=== PATIENT | female | born 1955 | race Caucasian/White ===

== ENCOUNTER → 2017-03-03 | Outpatient (CLI) | payer OTHER ==
--- NOTE | 2017-03-03 17:05 | KCIC ---
Bilateral digital screening mammograms: Reason for examination: Routine screening. Comparison is made to previous studies dated 10/08/2015 and 10/03/2014. The skin and nipples show no abnormalities. No abnormal lymph nodes are seen. The breast parenchyma is predominantly fatty. (Breast density: Category A.) There continues to be a small nodule consistent with an intramammary lymph node at the 2:00 C position of the left breast. There are no new dominant masses, suspicious calcifications or architectural distortions. Impression: No evidence of malignancy. Recommend routine screening. BI-RADS Category 2: Benign. "Our facility is accredited by the [employer] Mammography [employer]." This patient's information has been entered into a reminder system for the patient to be notified with the results of her examination and a target date for the next mammogram. Electronically signed by: Rebecca Kim MD (03/03/2017 5:02 PM) [facility]
== END | disposition home or self-care (01) ==
LOC: KCIC MAMMO 13:45
PROVIDERS: ATTEND Obstetrics & Gynecology
DX: Z12.31 Encounter for screening mammogram for malignant neoplasm of breast (principal)
CPT/HCPCS: G0202; 77067

== ENCOUNTER → 2018-03-08 | Outpatient (CLI) | payer OTHER ==
--- NOTE | 2018-03-08 13:02 | KCIC ---
Bilateral digital screening mammograms: Reason for examination: Routine screening. Comparison is made to previous studies dated 03/03/2017 and 10/08/2015. Interpretation is made with the benefit of CAD. The skin and nipples show no abnormalities. No abnormal lymph nodes are seen. The breast parenchyma is predominantly fatty. (Breast density: Category A.) There continues to be a small nodule consistent with an intramammary lymph node at the 2:00 C position of the left breast. There also continues to be a small parenchymal density inferior to the nipple at approximately the 6:00 A position of the right breast which is unchanged. There are no new dominant masses, suspicious calcifications or architectural distortions. Impression: No evidence of malignancy. Recommend routine screening. BI-RADS Category 2: Benign. "Our facility is accredited by the [employer]ammography [employer]." This patient's information has been entered into a reminder system for the patient to be notified with the results of her examination and a target date for the next mammogram. Electronically signed by: Rebecca Kim MD (03/08/2018 12:58 PM) [id number]
== END | disposition home or self-care (01) ==
LOC: KCIC MAMMO 11:38
PROVIDERS: ATTEND Obstetrics & Gynecology
DX: Z12.31 Encounter for screening mammogram for malignant neoplasm of breast (principal)
CPT/HCPCS: 77067

== ENCOUNTER → 2019-03-14 | Outpatient (CLI) | payer OTHER ==
--- NOTE | 2019-03-14 16:08 | KCIC ---
Bilateral digital screening mammograms: Reason for examination: Routine screening. Comparison is made to previous studies dated 03/08/2018 and 03/03/2017. Interpretation was made with the benefit of CAD. The skin and nipples show no abnormalities. No abnormal axillary lymph nodes are seen. The breast parenchyma shows scattered fibroglandular density. (Breast density: Category B.) There continues to be a nodule consistent with an intramammary lymph node in the 2:00 C position of the left breast. There appears to be some new nodular parenchymal density in the anterior medial left breast probably at the 11:00 position. Recommend further evaluation with ultrasound. There are no other nodules, suspicious calcifications or architectural distortions. Impression: New nodularity anterior medially in the left breast seen best on CC view. Recommend further evaluation with ultrasound. BI-RADS Category 0: Incomplete. Needs additional imaging evaluation. "Our facility is accredited by the [employer] Mammography [employer]." This patient's information has been entered into a reminder system for the patient to be notified with the results of her examination and a target date for the next mammogram. Electronically signed by: Rebecca Kim MD (03/14/2019 4:05 PM) [facility]
== END | disposition home or self-care (01) ==
LOC: KCIC MAMMO 13:56
PROVIDERS: ATTEND Obstetrics & Gynecology
DX: Z12.31 Encounter for screening mammogram for malignant neoplasm of breast (principal); N64.89 Other specified disorders of breast
CPT/HCPCS: 77067

== ENCOUNTER → 2019-03-29 | Outpatient (CLI) | payer OTHER ==
--- NOTE | 2019-03-29 15:45 | KCIC ---
Left breast ultrasound: Reason for examination: Follow-up nodule seen on mammographic exam. Comparison is made to mammographic exam dated 03/14/2019. Left whole breast ultrasound including evaluation of all 4 quadrants and the retroareolar and axillary regions of the left breast was performed. In the 2:00 position 11 cm from the nipple, there is a small 6.8 mm nodule consistent with an intramammary lymph node. In the 11:00 position 2 cm from the nipple there is some focal ductal ectasia. In the retroareolar 11:00 position, there is a 7.5 mm hypoechoic fibrocystic type lesion. In the 11:00 position 4 cm from the nipple, there is a 5.7 mm fibrocystic type lesion. No suspicious nodules are seen. No abnormal appearing lymph nodes are seen in the left axilla. IMPRESSION: Small fibrocystic type lesions at the 11:00 position. No suspicious abnormalities are seen. Recommend 6 month follow-up with ultrasound. BI-RADS Category 3: Probably Benign. "Our facility is accredited by the [employer] Mammography [employer]." This patient's information has been entered into a reminder system for the patient to be notified with the results of her examination and a target date for the next mammogram. Electronically signed by: Rebecca Kim MD (03/29/2019 3:42 PM) [facility]
== END | disposition home or self-care (01) ==
LOC: KCIC US 12:51
PROVIDERS: ATTEND Obstetrics & Gynecology
DX: N63.22 Unspecified lump in the left breast, upper inner quadrant (principal); N60.42 Mammary duct ectasia of left breast
CPT/HCPCS: 76641

== ENCOUNTER → 2020-05-10 | Outpatient (CLI) | payer MEDICARE ==
--- NOTE | 2020-05-10 10:57 | KCIC ---
EXAM: DUAL ENERGY X-RAY ABSORPTIOMETRY (DEXA). HISTORY: Postmenopausal screening. FINDINGS: The lowest measured T-score is 1.0 in the left total femur, based on a bone mineral density of 1.063 g/cm^2. Refer to the worksheets for full detail. No comparison examinations are available. IMPRESSION: Normal. Bone mineral density yields a T-score of -1.0 or greater. Fracture risk is low. FRAX was not calculated. METHODOLOGY: Dual energy x-ray absorptiometry was performed to measure bone mineral density. The following analysis is based on the 2019 Official Positions of the International Society for Clinical Densitometry: Measurements of the hips and the average of L1-L4 are preferred. When the spine and/or hip cannot be feasibly measured or interpreted, or in the setting of hyperparathyroidism, distal radial bone mineral density may be measured. The lumbar spine T-score is based on the average bone mineral density of L1-L4. In the setting of artifact or anatomic abnormality, some lumbar levels may be excluded, and the remaining levels used for calculation. A single lumbar level is not used for diagnosis, and if only a single level is available for assessment, another anatomic site will be used to assign a diagnosis. The hip T-score is based on the bone mineral density measurement of the femoral neck or total proximal femur of either side, whichever is lowest. Bilateral mean values are not used for diagnosis. The forearm T-score is derived from 33% of the distal radius of the nondominant forearm. For postmenopausal and perimenopausal women, and men age 50 or older, of all ethnic groups, T-scores are calculated through comparison of the current measurement with the NHANES III database standard for females aged 20-29 years. The lowest T-score of the evaluated anatomic sites is used to assign a diagnosis based on the World Health Organization densitometric classification. In premenopausal females and males younger than age 50, a Z-score is calculated based on population specific reference data for patient sex and self-reported ethnicity. Electronically signed by: Malorie Engel MD (05/10/2020 10:53 AM) [facility]
--- NOTE | 2020-05-10 12:33 | KCIC ---
EXAM: CT Lung Cancer Screening Chest without IV contrast INDICATION: Lung cancer screening. Smoker for 45 years, 1-2 packs a day greater than 30 year pack history. TECHNIQUE: Multi-detector row low dose CT images were acquired from the thoracic inlet through the upper abdomen without the use of IV contrast. Scanning parameters were adjusted for evaluation of lung parenchyma for developing lung carcinoma with limited patient exposure. Sagittal and coronal images were acquired from the transaxial data. All CT scans performed at this facility utilize dose optimization techniques as appropriate to the exam, including the following: Automated exposure control and adjustment of the mA and/or KV according to patient size (this includes techniques or standardized protocols for targeted exams where dose is indication/reason for exam). COMPARISON: None FINDINGS: The absence of IV contrast limits evaluation of soft tissue pathology. CARDIOVASCULAR: Scattered atherosclerotic calcifications in the thoracic aorta, coronary arteries and supraaortic great vessels. MEDIASTINUM & TRAICE: Calcified mediastinal and right hilar lymph nodes are present. LUNGS: No pulmonary infiltrate, nodule, or other focal abnormality. PLEURAL SPACE: No pleural effusions. No pneumothorax. OSSEOUS & SOFT TISSUES: Unremarkable. ABDOMEN: The visualized portions of the upper abdomen are normal. Lung-RADS ASSESSMENT: LUNG-RADS CATEGORY 1: Negative/No nodules and definitely benign nodules. -- Continue annual screening with LDCT in 12 months. E2: Soft tissue structures and skeletal structures other than the lungs contain benign findings that do not require additional follow up IMPRESSION: Normal CT lung cancer screening. Electronically signed by: Rayna Tellez MD (05/10/2020 12:30 PM) [id number]
== END ==
LOC: KCIC CT 09:16
PROVIDERS: ATTEND Internal Medicine
DX: Z12.2 Encounter for screening for malignant neoplasm of respiratory organs (principal); N95.9 Unspecified menopausal and perimenopausal disorder; I70.0 Atherosclerosis of aorta; F17.210 Nicotine dependence, cigarettes, uncomplicated
CPT/HCPCS: 77080; G0297

== ENCOUNTER → 2020-07-17 | Outpatient (CLI) | payer MEDICARE ==
--- NOTE | 2020-07-18 05:36 | KCIC ---
EXAMINATION: Magnetic resonance imaging (MRI) of the lumbar spine without contrast 07/17/2020 2:55 PM HISTORY: Low back pain. Radiculopathy and bilateral hip pain. TECHNIQUE: Multiplanar multi-weighted MRI of the lumbar spine was performed without intravenous contr ast using the standard lumbar spine protocol. Contrast information: None administered. COMPARISON: None available. FINDINGS: The alignment of the lumbar spine is normal. Vertebral bodies demonstrate normal signal intensity on all sequences. There are no compression fractures. The conus medullaris terminates at the level of L1. The distal spinal cord signal intensity is normal. Intervertebral disks have normal height and signal intensity. There are no annular fissures identified. Limited views of the abdomen and pelvis show no soft tissue abnormality. The aorta is normal. L1-L2: Mild disc bulge with central disc extrusion. There is mild facet arthropathy. There is moderat e neuroforaminal stenosis. There is mild spinal canal stenosis, exacerbated by epidural lipomatosis. L2-L3: Mild disc bulge. There is no facet arthropathy. There is no neuroforaminal stenosis. There is no spinal canal stenosis. L3-L4: There is mild disc bulge. There is moderate facet arthropathy ligamentum flavum infolding. The re is mild bilateral neuroforaminal stenosis, left greater than right. No spinal canal stenosis. L4-L5: There is a moderate circumferential disc bulge. There is severe facet arthropathy ligamentum f lavum infolding. There is focal T2 and T1 signal hypointensity along the posterior lateral right thec al sac which may represent an area of ligamentum flavum infolding versus calcified synovial cyst or l ess likely an extradural lesion. Findings result in right lateral recess stenosis and moderate bilate ral neuroforaminal stenosis. There is mild to moderate spinal canal stenosis. L5-S1: There is a disc bulge with central disc protrusion. Moderate right and mild left facet arthrop athy. Moderate right neuroforaminal stenosis. No spinal canal stenosis. IMPRESSION: Moderate degenerative changes of the lumbar spine, most prominent at L4-L5 with a moderate circumfere ntial disc bulge with severe facet arthropathy and ligamentum flavum infolding. There is focal T2 and T1 signal hypointensity along the posterior lateral right thecal sac which may represent an area of ligamentum flavum infolding versus calcified synovial cyst or less likely an extradural lesion. Electronically signed by: Tatianna Michael MD (07/18/2020 5:34 AM) [facility]
--- NOTE | 2020-07-18 07:44 | KCIC ---
MRI pelvis without contrast HISTORY: Low back pain. Bilateral hip pain. Radiculopathy. Right buttock pain. FINDINGS: Pelvic organs demonstrate within the anterior upper pelvis a unilocular cystic mass maximum diameter 9.2 x 8.2 cm transaxial by 8.4 cm craniocaudal, the anterior wall demonstrate some thin int ernal septations, no discrete wall thickening or solid nodules of this cyst evident presumably replac es the right ovary. Separately the left ovary is essentially replaced by a smaller oval 1.5 x 1.0 x 1 .0 cm cyst. Uterus and endometrial canal normal. There is prominence of the endocervical mucosa with a diameter o f 1 cm although there is no discrete mass lesion or invasion into the cervical stroma evident. Vagina , bladder and rectum are unremarkable. Sigmoid diverticulosis noted. Lumbar disc bulges and facet spurring with spinal canal and neural foraminal stenoses as described in the MRI lumbar spine report. Both hips demonstrate mild imaging changes of osteoarthritis with mild joint space narrowing and mild bone spurring at the acetabulum. No bone edema, fracture or osteonecrosis of the hips. Pubic symphysis demonstrates osteoarthritis with joint line bony sclerosis and mild bone spurring, wi th bony edema of the left pubic bone. The remainder of the pelvis is normal without bony edema, fracture or arthritic change evident. IMPRESSION: 1. 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 2. Mild imaging changes of bilateral hip osteoarthritis. 3. Right ovarian 9 cm unilocular cyst with some thin internal septations along the anterior wall. For incidental cysts of this size in a postmenopausal female correlation with serum CA-125, and further assessment with postcontrast with pelvic MR imaging would be of benefit to exclude any abnormal thick ened or irregular enhancing septations or enhancing solid components. 4. Prominence of the endocervical mucosa of uncertain significance. Correlation with Pap smear may be of benefit. Electronically signed by: Brian Guidry MD (07/18/2020 7:42 AM) [id number]
== END ==
LOC: KCIC MRI 14:33
PROVIDERS: ATTEND Internal Medicine
DX: M16.0 Bilateral primary osteoarthritis of hip (principal); M25.552 Pain in left hip; M25.551 Pain in right hip; M47.26 Other spondylosis with radiculopathy, lumbar region; M48.061 Spinal stenosis, lumbar region without neurogenic claudication; N95.9 Unspecified menopausal and perimenopausal disorder; N83.291 Other ovarian cyst, right side
CPT/HCPCS: 72148; 72195

== ENCOUNTER → 2020-07-23 | Outpatient (CLI) | payer MEDICARE ==
[~2020-07-23] MED LIST: ACET-1871 PO; ATOR10TA60 PO; BIOT5000 PO; CALC-71 PO; DULO60CA6 PO; IOHEXOL 180 MG/ML 10 ML VIAL. ONE; LISI1TAB37 PO; MULT-445 PO; NABU750T7 PO; OXYB5TAB10 PO; TRAM50TA PO; VARE1TAB21 PO; VITA1TAB19 PO; methylPREDNISolone ACETATE 40 MG/ML VIAL. ONE; methylPREDNISolone ACETATE 80 MG/ML VIAL. ONE
--- NOTE | 2020-07-23 15:46 | PDOC1 ---
INITIAL PAIN CONSULT DATE OF SERVICE: DOS: DATE: 07/23/20 TIME: 15:39 CHIEF COMPLAINT: Chief Complaint: Low back and right greater than left lower extremity pain HISTORY OF PRESENT ILLNESS: 65-year-old female presents with history of pain in the low back and right greater than left lower extremity for about 5+ years. Patient reports not the result of any specific injury or accident that she is aware of but is getting worse with time. Patient reports is worse in the low back rating the posterior gluteus posterior lateral thigh lateral anterior thigh anterior medial thigh on the right but occasionally on the left as well. Patient reports the pain is constant and sharp stabbing and throbbing in the low back with radiating pain that is cold sensation in the right leg as well as a burning sensation in the back and the right posterior hip. Patient has been doing some stretching and strengthening on her own has had a trigger point injection from her primary physician which did help for about a week on the left side. Patient reports that she had some chiropractic treatment in the past as well but is been several years. Patient rates her disability rating 0-10 10 being the worst as a 6-10 on family home responsibilities, 6 with recreation, 5 with social activity occupation, 10 with sexual behavior, 7 with self-care and 5 life support activities. Patient ports it wakes her from sleep about 2-3 times at night and does not affect her bowel bladder control but does affect ability to walk she is unable to complete a shopping trip to the grocery store without having to take a break and sit down. Patient reports also worse with standing stationary when she is for instance preparing food or at her sink in the kitchen doing dishes. Patient did have a MRI scan of lumbar spine showing disc bulges from L2-3 through 4 L4-5 and L5-S1 with L4-5 showing moderate circumferential disc bulge and right lateral recess stenosis and moderate bilateral neuroforaminal stenosis with mild to moderate spinal canal stenosis. Patient reports no loss of motor function but significant fatigability especially the right leg with walking and standing. She reports no bowel or bladder incontinence PAST MEDICAL HISTORY: PMH: Hypertension, obesity, arthritis, shortness of breath, incontinence, depression and anxiety. PREVIOUS SURGERIES: Past Surgical Hx: Carpal tunnel repair on the right, cholecystectomy, tonsillectomy, x1. CURRENT MEDICATIONS: Current Meds: See chart ALLERGIES; Allergies: Coded Allergies: rosuvastatin (Verified Allergy, Unknown, 07/23/20) FAMILY HISTORY: Family Hx: Diabetes SOCIAL HISTORY: Social Hx: Patient drinks alcohol once or twice a month just quit smoking previously less than a pack a day for many years does not use any illegal illicit or recreational drugs is lives with her spouse lives locally in [facility] REVIEW OF SYSTEMS: ROS: Positive for those items mentioned in history of present illness, all systems are reviewed, otherwise negative ,and are complete full and well-documented on patient's chart. PHYSICAL EXAM: VS: Blood pressure is 150/69 pulse 81 respirations 16 temperature 98.5 F height is 61 inches weight is 250 pounds PE: PHYSICAL EXAMINATION: GENERAL: The patient is awake, alert, oriented, appropriate, very pleasant demeanor HEENT: Shows normocephalic, atraumatic. Extraocular movements are intact and symmetrical. Oral cavity: Mucous membranes moist and pink. Dentition is intact. NECK: Shows anterior throat supple without palpable lymphadenopathy noted. Swallow reflex symmetrical. CHEST: Shows normal on inspection. Breath sounds are clear bilaterally, distant but no rales rhonchi wheezes auscultated. HEART: Shows S1, S2 clear. No murmurs auscultated. ABDOMEN: Soft, nontender, nondistended, obese. No palpable organomegaly is noted. No rebound or guarding demonstrated. BACK: Shows spine grossly in the midline. Normal-appearing cervical lordotic curvature. There is slightly increased thoracic kyphosis, some minor flattening of the lumbar lordotic curvature. Lumbar paraspinous muscles show symmetrical on inspection, on palpation shows some moderate tenderness diffusely throughout the upper, middle and lower distribution of the paraspinous muscles bilaterally and also into the lower thoracic paraspinous musculature, firm and tender, but without specific trigger points, without radiation of pain. The patient has good rotational motion of the lumbar spine, both laterally as well as extension and flexion without significant difficulty. No tenderness over the spinous processes, sacrum or sacroiliac regions. EXTREMITIES: Lower extremities show deep tendon reflexes 1+ in the patellar and tendo calcaneus tendons. Motor exam is 4 on a scale of 5 with right dorsiflexion, extension, quadriceps and hamstring flexion and 5/5 on the left. Peripheral pulses are 1+ posterior tibial. No peripheral edema is noted bilaterally. Lower extremities are warm and dry to touch, equal in color and appearance. Straight leg raise noted to be negative bilaterally at past 45 degrees. SKIN: Shows warm and dry, good turgor. No edema. No sores, rashes or bruising throughout. IMPRESSION: Impression: 65-year-old female with long history low back and right greater than left lower extremity pain MRI scan as noted Arthritis Obesity Hypertension Plan: Options were discussed with the patient including conservative medical management physical therapies and interventional techniques. Patient would like to pursue interventional techniques. We discussed a lumbar epidural steroid i njection using description as well as anatomical models to describe the procedure. Risks were discussed including but not limited to: Bleeding, infection, possibility of epidural hematoma and subsequent neurological compromise, dural puncture, headaches, spinal cord and/or nerve damage, side effects of steroid medication, and poor results regarding pain control. Patient understands and wished to proceed. Patient will return to clinic in approximate 2 weeks for follow-up, was counseled as to return appointment activity level and side effects to be aware of. Procedure is lumbar epidural steroid injection under local anesthetic using sterile prep and drape at the L4-5 level using C-arm fluoroscopic guidance in both AP and lateral views medications injected is 120 mg Depo-Medrol + 10 mL preservative-free normal saline and 2 mL contrast- condition at discharge is stable patient tolerated procedure well had no complications. VIJAY BROOKS MD Jul 23, 2020 15:46
== END | disposition home or self-care (01) ==
LOC: PNCL 14:03
PROVIDERS: ATTEND Anesthesiology
DX: M54.5 Low back pain (principal); M79.605 Pain in left leg; M79.604 Pain in right leg; I10 Essential (primary) hypertension; E66.9 Obesity, unspecified; M19.90 Unspecified osteoarthritis, unspecified site; F41.9 Anxiety disorder, unspecified; F32.9 Major depressive disorder, single episode, unspecified; Z83.3 Family history of diabetes mellitus; Z90.49 Acquired absence of other specified parts of digestive tract; Z98.890 Other specified postprocedural states; Z79.899 Other long term (current) drug therapy; Z88.8 Allergy status to other drugs, medicaments and biological substances
CPT/HCPCS: 62323; J1030; J1040; Q9965

== ENCOUNTER → 2020-08-03 | Outpatient (CLI) | payer MEDICARE ==
[~2020-08-03] MED LIST changes: +GADOTERATE 7.5 MMOL/15ML VIAL. IVP ONE; -IOHEXOL 180 MG/ML 10 ML VIAL. ONE; +NABU750T11 PO; -NABU750T7 PO; -methylPREDNISolone ACETATE 40 MG/ML VIAL. ONE; -methylPREDNISolone ACETATE 80 MG/ML VIAL. ONE
--- NOTE | 2020-08-03 22:42 | KCIC ---
MRI pelvis without and with contrast Contrast: 22 mL Clariscan gadolinium intravenous contrast. HISTORY: Ovarian mass. COMPARISON: MRI pelvis July 17, 2020. FINDINGS: There is a left ovarian 1.5 cm cyst essentially replacing the left ovary, abutting the marifer cent sigmoid colon, stable. No contrast enhancement of this lesion or restricted diffusion evident. At the right adnexa the upper pelvis replacing the right ovary is a large cystic lesion with the gona trevon vessels extending along the upper and lateral wall of the lesion, which measures 9 cm maximum sandeep meter and is stable in size. No diffusion-weighted hyperintensity or restricted diffusion of the cyst ic lesion. There are some thin septations along the upper wall of the cysts measuring 1 to 2 mm in th ickness. The septations demonstrate no contrast enhancement. There are no thickened or irregular sept ations or solid nodules of this mass there is no contrast enhancement of this mass. These combined im aging features favor a benign cystic lesion. Mild thickening of the endocervical mucosa again demonstrated of uncertain significance. Uterus, blad freeman, rectum unremarkable. No pelvic fluid or adenopathy. IMPRESSION: 1. 9 cm unilocular cystic lesion replacing the right ovary. There are thin internal septations along its upper wall without contrast enhancement. There are no suspicious features of this cyst including no thickened or irregular septations, solid enhancing nodules or thickened enhancing wall. This favor s a benign cyst. Based on the size of the cyst in a postmenopausal female pelvic ultrasound follow-up in 6-12 months is advised to document stability in size over time, to exclude a slow-growing lesion of low malignant potential. 2. Other incidental findings again demonstrated as described above. Electronically signed by: Brian Guidry MD (08/03/2020 10:40 PM) [facility]
== END ==
LOC: KCIC MRI 13:44
PROVIDERS: ATTEND Internal Medicine
DX: N83.209 Unspecified ovarian cyst, unspecified side (principal)
CPT/HCPCS: 72197; 82565; A9575

== ENCOUNTER → 2020-08-13 | Outpatient (CLI) | payer MEDICARE ==
[~2020-08-13] MED LIST changes: -GADOTERATE 7.5 MMOL/15ML VIAL. IVP ONE; +IOHEXOL 180 MG/ML 10 ML VIAL. ONE; -NABU750T11 PO; +NABU750T7 PO; +methylPREDNISolone ACETATE 40 MG/ML VIAL. ONE; +methylPREDNISolone ACETATE 80 MG/ML VIAL. ONE
--- NOTE | 2020-08-13 14:46 | PDOC ---
Progress Note - Pain Clinic Date of Service: DOS: DATE: 08/13/20 TIME: 14:42 Diagnosis: Dx: Lumbar radiculopathy with lumbar degenerative disc disease lumbar spinal stenosis History or Present Illness: HPI: 65-year-old female returns follow-up status post lumbar epidural steroid injection x1. Patient reports about 40% improvement overall in the low back and right lower extremity pain. Patient reports still continued pain across the low back bilaterally more on the right than the left but present bilaterally radiating the right posterior gluteus posterior lateral thigh lateral anterior thigh anterior medial thigh medial lower leg worse with walking standing changing positions better with sitting or laying down but reports it does not awaken her from sleep at night. Patient reports her pain is at worst over the past week and a 4 on a scale of 10 2 on average at 1 its least is a 2 today. Patient reports tightness shooting across low back cramping and stabbing radiating in the right lower extremity that can be constant with weightbearing. Patient reports no new motor or sensory deficits no new bowel or bladder incontinence or other complaints. Physical Exam: VS: Pressure is 150/81 pulse 94 respirations 18 temperature 96.8 weight is 250 pounds PE: PHYSICAL EXAMINATION: GENERAL: The patient is awake, alert, oriented, appropriate, very pleasant dem eanor HEENT: Shows normocephalic, atraumatic. Extraocular movements are intact and symmetrical. Oral cavity: Mucous membranes moist and pink. NECK: Shows anterior throat supple without palpable lymphadenopathy noted. Swallow reflex symmetrical. CHEST: Shows normal on inspection. Breath sounds are clear bilaterally. HEART: Shows S1, S2 clear. No murmurs auscultated. ABDOMEN: Soft, nontender, nondistended, obese. No palpable organomegaly is noted. BACK: Shows spine grossly in the midline. Normal-appearing cervical lordotic curvature. There is slightly increased thoracic kyphosis, some minor flattening of the lumbar lordotic curvature. Lumbar paraspinous muscles show symmetrical on inspection, on palpation shows some moderate tenderness diffusely throughout the upper, middle and lower distribution of the paraspinous muscles without specific trigger points, without radiation of pain. The patient has good rotational motion of the lumbar spine, both laterally as well as extension and flexion without significant difficulty. EXTREMITIES: Lower extremities show deep tendon reflexes 1+ in the patellar and tendo calcaneus tendons. Motor exam is 4 on a scale of 5 with right dorsiflexion, extension, quadriceps and hamstring flexion and 5/5 on the left. Peripheral pulses are 1+ posterior tibial. No peripheral edema is noted bilaterally. Lower extremities are warm and dry to touch, equal in color and appearance. SKIN: Shows warm and dry, good turgor. No edema. No sores, rashes or bruising throughout. Procedure: Procedure: Options discussed with the patient. Patient chart reviews her current medicat ion regimen updated current review of systems updated today as well. We will proceed with a second in a series lumbar epidural steroid injection stable fluoroscopic guidance. Risks were discussed including but not limited to: Bleeding, infection, possibility of epidural hematoma and subsequent neurological compromise, dural puncture, headaches, spinal cord and/or nerve damage, side effects of steroid medication, and poor results regarding pain control. Patient understands and wished to proceed. She will return to clinic in approximate 2 weeks for follow-up, was counseled as return appointment, activity level, and side effects to be aware of. Medication Injected: Med Injected: Procedure is lumbar epidural steroid injection under local anesthetic using sterile prep and drape at the L4-5 level using C-arm fluoroscopic guidance in both AP and lateral views medications injected is 120 mg Depo-Medrol + 10 mL preservative-free normal saline and 2 mL contrast- condition at discharge is stable patient tolerated procedure well had no complications. Condition at Discharge: Condition at Discharge: Condition at discharge stable, patient tolerated the procedure well and had no complications. VIJAY BROOKS MD Aug 13, 2020 14:46
--- NOTE | 2020-08-13 14:46 | PDOC4 ---
PROCEDURE Procedure Patient was consented for lumbar epidural steroid injection. Risks were dis cussed including but not limited to: Bleeding, infection, possibility of epidural hematoma and subsequent neurological compromise, dural puncture, headaches, spinal cord and/or nerve damage, side effects of steroid medication, and poor results regarding pain control. Patient understands and wished to proceed. Procedure is lumbar epidural steroid injection under local anesthetic using sterile prep and drape at the L4-5 level using C-arm fluoroscopic guidance in both AP and lateral views medications injected is 120 mg Depo-Medrol + 10 mL preservative-free normal saline and 2 mL contrast- condition at discharge is stable patient tolerated procedure well had no complications. VIJAY BROOKS MD Aug 13, 2020 14:46
== END | disposition home or self-care (01) ==
LOC: PNCL 14:02
PROVIDERS: ATTEND Anesthesiology
DX: M51.16 Intervertebral disc disorders with radiculopathy, lumbar region (principal); M48.061 Spinal stenosis, lumbar region without neurogenic claudication; Z79.899 Other long term (current) drug therapy; Z88.8 Allergy status to other drugs, medicaments and biological substances
CPT/HCPCS: 62323; J1030; J1040; Q9965

== ENCOUNTER → 2020-10-03 | Outpatient (CLI) | payer MEDICARE ==
[~2020-10-03] MED LIST changes: -IOHEXOL 180 MG/ML 10 ML VIAL. ONE; +NABU750T11 PO; -NABU750T7 PO; -methylPREDNISolone ACETATE 40 MG/ML VIAL. ONE; -methylPREDNISolone ACETATE 80 MG/ML VIAL. ONE
--- NOTE | 2020-10-03 14:55 | PDOC ---
Progress Note - Pain Clinic Date of Service: DOS: DATE: 10/03/20 TIME: 14:51 Diagnosis: Dx: Lumbar radiculopathy with lumbar degenerative disc disease and lumbar spinal stenosis History or Present Illness: HPI: 65-year-old female returns to follow-up status post lumbar epidural steroid injection x2. Patient reports about 40% initially after the first injection about 60% improvement after the last injection but was short-lived patient reports only lasted for a few weeks after the last injection which was August 14, 2020 patient reports she had some increased swelling in both of her legs she is undergoing a extensive cardiac work-up at this time when she is walking different as she reports her legs feel more heavy and she is putting more stress on her low back more pain in the back as well. Patient reports her pain is a 9 on scale 10 is worse over the past week 5 on average 4 to sleep and is a 5 today patient describes it as stabbing and aching in the back sharp at times tight and shooting in the right lower extremity posterior gluteus posterior lateral thigh anterior thigh as well and into the medial calf patient reports no new motor or sensory deficits no new bowel or bladder complaints. Physical Exam: VS: Blood pressure is one 2/75 pulse 84 respirations 16 temperature 98.2 F weight is 262 pounds PE: PHYSICAL EXAMINATION: GENERAL: The patient is awake, alert, oriented, appropriate, very pleasant demeanor HEENT: Shows normocephalic, atraumatic. Extraocular movements are intact and symmetrical. Patient wearing eyeglasses oral cavity: Mucous membranes moist and pink. Dentition is intact. NECK: Shows anterior throat supple without palpable lymphadenopathy noted. Swallow reflex symmetrical. CHEST: Shows normal on inspection. Breath sounds are clear bilaterally, distant but no rales rhonchi or wheezes auscultated bilaterally. HEART: Shows S1, S2 clear. No murmurs auscultated. ABDOMEN: Soft, nontender, nondistended, obese. No palpable organomegaly is noted. BACK: Shows spine grossly in the midline. Normal-appearing cervical lordotic curvature. There is slightly increased thoracic kyphosis, some minor flattening of the lumbar lordotic curvature. Lumbar paraspinous muscles show symmetrical on inspection, on palpation shows some moderate tenderness diffusely throughout the upper, middle and lower distribution of the paraspinous muscles, but without specific trigger points, without radiation of pain. The patient has good rotational motion of the lumbar spine, both laterally as well as extension and flexion without significant difficulty. EXTREMITIES: Lower extremities show deep tendon reflexes 1+ in the patellar and tendo calcaneus tendons. Motor exam is 4 on a scale of 5 with right dorsiflexion, extension, quadriceps and hamstring flexion and 5/5 on the left. Peripheral pulses are 1+ posterior tibial. 2-3+ pitting peripheral edema is noted bilaterally in the ankles and two thirds distance to the knee on the anterior tibia. Lower extremities are warm and dry to touch, equal in color and appearance, and have a erythematous appearance below the knee. SKIN: Shows warm and dry, good turgor. No edema. No sores, rashes or bruising throughout. Procedure: Procedure: Options discussed with the patient. Patient chart was reviewed as her current medication regimen updated current review of systems updated today as well. We will hold on any further injections at this time as patient is currently having some significant swelling in her lower extremities also ongoing cardiac work-up in progress. Once patient's legs are feeling better with regard to swelling and cellulitis have patient return for potential third epidural steroid injection at that time. Medication Injected: Med Injected: None Condition at Discharge: Condition at Discharge: Condition at discharge is stable. VIJAY BROOKS MD Oct 03, 2020 14:55
== END | disposition home or self-care (01) ==
LOC: PNCL 14:08
PROVIDERS: ATTEND Anesthesiology
DX: M51.16 Intervertebral disc disorders with radiculopathy, lumbar region (principal); M48.061 Spinal stenosis, lumbar region without neurogenic claudication; Z79.899 Other long term (current) drug therapy; Z88.8 Allergy status to other drugs, medicaments and biological substances
CPT/HCPCS: G0463